=== PATIENT | male | born 1960 | race Caucasian/White ===

== ENCOUNTER → 2019-08-16 12:35 | Outpatient (CLI) | payer OTHER ==
--- NOTE | 2019-08-18 08:54 | EC ---
PATIENT:EUGENIE CURRY DATE OF SERVICE: 08/16/19 SEX: M MEDICAL RECORD: [id number] DATE OF : 60 LOCATION:D. AGE OF PATIENT: 58 ADMISSION DATE: 08/16/19 REFERRING PHYSICIAN: INTERPRETING PHYSICIAN: GERALD BURRIS MD ECHOCARDIOGRAM REPORT ECHO CHARGES 4 ECHO COMPLETE Date: 08/16/19 CLINICAL DIAGNOSIS: HEART MURMUR ECHOCARDIOGRAPHIC MEASUREMENTS (adult normal given) AC root (d.<3.7cm) 3.6 cm LV Septum d (<1.2 cm> 1.3 cm Valve Excursion 1.6 cm LV Septum (systole) 1.4 cm Left Atria (s.<4.0cm> 3.4 cm LVPW d(<1.2cm) 1.3 cm RV (d.<2.3cm) 3.8 cm LVPW (sytole) 1.7 cm LV diastole(<5.6CM) 4.9 cm MV E-F(>70mm/sec) cm LV systole 3.1 cm LVOT Diameter 1.9 cm MV exc.(>10mm) 1.9 cm Est.ejection fraction (50-75%) % DOPPLER: LVIT cm/sec A 68.0 cm/sec E 36.0 cm/sec LA cm/sec RVSP 22 mmHg LVOT 106 cm/sec AOP1/2T m/s Asc. Ao 124 cm/sec RVOT 68 cm/sec RA cm/sec PA 89 cm/sec AV Gradient Peak 6.14 mmHg AV Mean 2.92 mmHg AV Area 2.0 cm MV Gradient Peak 3.58 mmHg MV Mean 1.31 mmHg MV Area cm COMMENTS: Road Contractor: 2 BLAYNE DEL REAL Encephalographer: 3 Dr. Gonzales TAPE# PACS Pericardial Effusion N DATE OF SERVICE: Adequate 2-D echo, Color-Flow and Spectral Doppler, and M-mode Mild LVH. LV internal dimension is normal. Wall motion is normal. EF is greater than or equal to 55%. Aortic valve is tricuspid. No evidence of stenosis by Doppler interrogation. Left atrium is normal at 3.4 cm. Mitral valve shows no prolapse. Trace MR. Right-sided chambers are grossly normal. Trace TR. ECHOCARDIOGRAM REPORT [id number] EUGENIE CURRY TRANSINT:[id number] Voice Confirmation ID: [id number] DOCUMENT ID: [id number] GERALD BURRIS MD at 0854 CC: [id number] DICTATION DATE: 08/17/191314 HYDRAULIC LIFT OPERATOR: 08/17/191924 DEP CLI 08/16/19 [facility] [address] [place] [address]
--- NOTE | 2019-08-26 11:25 | ST ---
PATIENT:EUGENIE CURRY MEDICAL RECORD: [id number] SEX: M LOCATION:[facility] ORDER #: ADMISSION DATE: 08/16/19 AGE OF PATIENT: 58 REFERRING PHYSICIAN: INTERPRETING PHYSICIAN: GERALD BURRIS MD DATE OF SERVICE: 08/16/2019 PROCEDURE: Treadmill stress test. TECHNIQUE: Bassline ECG is normal. Exercise for 10 minutes on Edis protocol. Maximum heart rate is 146 beats per minute. No ECG changes for ischemia. No symptoms of ischemia. Normal blood pressure response to exercise. No arrhythmias noted. Good exercise tolerance for age. TRANSINT:[id number] Voice Confirmation ID: [id number] DOCUMENT ID: [id number] GERALD BURRIS MD at 1125 CC: [id number] DICTATION DATE: 08/19/19 1223 CAREER INFORMATION SPECIALIST: 08/19/19 1407 DEP CLI 08/16/19 [id number] [place] [address]
== END | disposition home or self-care (01) ==
LOC: D.US 12:35 → D.HCCECHO 14:00
PROVIDERS: ATTEND Internal Medicine Interventional Cardiology
DX: R09.89 Other specified symptoms and signs involving the circulatory and respiratory systems (principal); R01.1 Cardiac murmur, unspecified; I20.9 Angina pectoris, unspecified

== ENCOUNTER 2019-10-30 03:42 | Observation (INO) | payer OTHER ==
[~2019-10-30] VITALS: Ht 180.3 cm; Wt 76.4 kg
--- NOTE | ~2019-10-30 | HEMODYNAMI ---
PATIENT:EUGENIE CURRY MEDICAL RECORD: [id number] : 60 LOCATION:[facility] D.2116 ADMISSION DATE: 10/30/19 Generatedon:10/30/201910:36 Patient name: EUGENIE CURRY Patient #: [id number] SSN: : 1960 Date of study: 10/30/2019 Page: Of Hemodynamic Procedure Report Patient Data Patient Demographics Procedure consent was obtained First Name: EUGENIE Gender: Male Last Name: ANTOINETTE : 1960 Patient #: [id number] Age: 59 year(s) Race: Unknown Additional ID: [id number] Contact details Address: [address] [place] [address] State: [place] City: [place] Zip code: [address] Past Medical History Allergies: No known allergies Admission Admission Data Admission Date: 10/30/2019 Admission Time: 4:22 Arrival Date: 10/30/2019 Arrival Time: 0:00 Room #: D.2116 Height (in.): 70.87 BSA: 1.95 (m2) Height (cm.): 180 BMI: 23.46 (kg/m2) Weight (lbs.): 167.55 Weight (kg.): 76 Lab Results Lab Result Date: 10/30/2019 Lab Result Time: 0:00 Biochemistry Name Units Result Min Max BUN mg/dl 16 --(---*)-- 7 18 Creatinine mg/dl 1.3 --(---*)-- 0.6 1.3 eGFR ml/min 60 *-(----)-- 90 120 NONAFRICAN CBC Name Units Result Min Max Hematocrit % 47.6 --(-*--)-- 42 54 Hemoglobin g/dl 16.5 --(--*-)-- 13.5 17.5 Procedure Procedure Types Cath Procedure Diagnostic Procedure [facility] w/Coronaries Sedation Charges Moderate Sedation up to 30 minutes PCI Procedure Coronary Stent Coronary Stent Initial PTCA PTCA Additional Hemochron ACT Test Peripheral Cath Diagnostic Procedure Lead Generation Marketing Manager Peripheral Procedures Four Vessel Arteriogram Procedure Description Procedure Date Procedure Date: 10/30/2019 Procedure Start Time: 9:44 Procedure End Time: 10:17 Procedure Staff Name Function Rodolfo Torres MD Performing Physician Eula Briceno RT Monitor Ramila Rubi RT Scrub Myriam Gaytan RT Monitor Geri Blake RN Nurse Indication Angina Procedure Data Cath Procedure Fluoroscopy Diagnostic fluoroscopy Total fluoroscopy Time: time: 10.3 min 10.3 min Diagnostic fluoroscopy Total fluoroscopy dose: 892 dose: 892 mGy mGy Contrast Material Contrast Material Type Amount (ml) Isovue 300 155 Entry Location Entry Primary Successful Side Size Upsize Upsize Entry Closure Succes sful Closure Location (Fr) 1 (Fr) 2 (Fr) Remarks Device Remarks Femoral Right 5 Fr 6 Fr Exoseal artery Short Estimated blood loss: 10 ml Diagnostic catheters Device Type Used For End Catheter Placement MULTIPACK JL 4.0 5Fr Procedure catheter MULTIPACK 3DRC 5Fr Procedure catheter MULTIPACK Pigtail 5 Fr Procedure catheter Procedure Complications No complications Procedure Medications Medication Administration Route Dosage 0.9% NaCl I.V. 100 ml/hr Oxygen etCO2 Nasal cannula 2 l/min Lidocaine 2% added to field 20 Heparin Flush Bag added to field 2 bags (1000units/500ml NS) Versed I.V. 2 mg Fentanyl I.V. 50 mcg Fentanyl I.V. 50 mcg Heparin Bolus I.V. 5000 units Integrilin (Bolus I.V. 6.8 ml 2mg/ml) Integrilin (Bolus wasted 3.2 ml 2mg/ml) Versed I.V. 2 mg Hemodynamics Rest BSA: 1.95 (m2) HGB: 16.5 (g/dl) O2 Consumption: Estimated: 225.12 (ml/min) O2 Co nsumption indexed: Estimated:115.45 (ml/min/m) Heart Rate: 64 (bpm) Pressure Samples Time Site Value (mmHg) Purpose Heart Use Rate(bpm) 9:52 LV 121/11,14 Snapshot 86 Gradients Valve Time Site Site Mean SEP/DFP Peak To Heart Use 1 2 (mmHg) (sec/min) Peak Rate (mmHg) (bpm) Aortic 9:53 LV AO 80 Snapshots Pre Cath Intra NCS Post Cath Vital Signs Time Heart Resp SPO2 etCO2 NIBP (mmHg) Rhythm Pain Sedation Rate (ipm) (%) (mmHg) Status Level (bpm) 9:31:46 61 13 100 40 152/93(135) NSR 0 (11) 10(A) , No pain 9:35:56 58 16 100 40.1 163/96(121) NSR 0 (11) 10(A) , No pain 9:40:08 80 15 99 44.6 147/92(114) NSR 0 (11) 10(A) , No pain 9:44:18 75 13 97 44.6 131/95(117) NSR 0 (11) 10(A) , No pain 9:48:23 76 11 97 49.1 130/87(115) NSR 0 (11) 10(A) , No pain 9:52:35 77 12 97 49.1 126/67(102) NSR 0 (11) 10(A) , No pain 9:56:41 85 14 96 48.3 125/86(101) NSR 0 (11) 9(A) , No pain 10:00:47 84 14 96 40 129/82(107) NSR 0 (11) 9(A) , No pain 10:04:51 81 15 96 38.5 132/92(117) NSR 0 (11) 9(A) , No pain 10:08:55 76 14 97 38.5 138/94(118) NSR 0 (11) 9(A) , No pain 10:13:00 77 14 97 40.8 138/97(115) NSR 0 (11) 9(A) , No pain 10:17:06 71 15 97 39.3 137/98(113) NSR 0 (11) 9(A) , No pain Medications Time Medication Route Dose Verified Delivered Reason Notes Effectiveness by by 9:37:10 0.9% NaCl I.V. 100 Rodolfo Geri used for ml/hr Melissa Hayden procedure RN 9:37:17 Oxygen etCO2 2 Rodolfo Geri used for Nasal l/min Melissa Hayden procedure cannula RN 9:37:22 Lidocaine 2% added 20ml Rodolfo Reynolds for local to vial [facility] anesthetic field MD MILLER 9:37:25 Heparin Flush added 2 Rodolfo Reynolds [facility] ([facility]/500ml field MD MILLER NS) 9:42:37 Versed I.V. 2 mg Rodolfo Geri for sedation [facility] Blake MD RN 9:42:41 Fentanyl I.V. 50 Rodolfo Geri for sedation mcg [facility] Blake MD RN 9:49:18 Heparin Bolus I.V. 5000 Rodolfo Geri for verifi ed units [facility] Blake anticoagulation with Dr. MD MARIA E Gonzales 9:49:18 Fentanyl I.V. 50 Rodolfo Geri for sedation mcg [facility] Blake MD RN 9:49:31 Integrilin I.V. 6.8 Rodolfo Geri for (Bolus 2mg/ml) ml [facility] antiplatelet RN therapy 9:49:42 Integrilin wasted 3.2 Rodolfo Geri for (Bolus 2mg/ml) ml [facility] antiplatelet RN therapy 9:53:20 Versed I.V. 2 mg Rodolfo Geri for sedation [facility] Edward Blake MD fund director Log Time Note 9:11:47 Informed consent obtained and on chart 9:12:18 Time tracking: Call back (After hours or weekends) 9:12:18 Procedure Status Urgent Heart Cath (IP). 9:12:28 Plan of Care:Hemodynamics will remain stable., Cardiac rhythm will remain stable., Comfort level will be maintained., Respiratory function will remain adequate., Patient/ family verbilizes understanding of procedure., Procedure tolerated without complication., Recovers from procedure without complications.. 9:12:31 Eula PIEDRA(R) sent for patient. Start room use. 9:12:35 H&P Date Dictated: 10/30/2019 ER History on chart.. 9:16:28 Patient allergic to No known allergies 9:17:08 Lab Result : Hemoglobin 16.5 g/dl 9:17:08 Lab Result : Hematocrit 47.6 % 9:17:08 Lab Result : eGFR NONAFRICAN 60 ml/min 9:17:08 Lab Result : BUN 16 mg/dl 9:17:08 Lab Result : Creatinine 1.3 mg/dl 9:17:48 Patient Weight : 167.55 lbs 9:17:51 Patient Height : 70.87 inches 9:17:55 Arrival Date: 10/30/2019 12:00:00 AM 9:18:16 Indication : Angina 9:18:24 Procedure type changed to Cath procedure, Diagnostic procedure, LHC, LHC w/Coronaries, Sedation Charges, Moderate Sedation up to 30 minutes, PCI procedure, Coronary Stent, Coronary Stent Initial, PTCA, PTCA Additional, Hemochron ACT Test, Peripheral Cath Diagnostic Procedure, Lead Generation Marketing Manager Peripheral Procedures, Four Vessel Arteriogram 9:22:37 Stress Test: no; N/A ? 9:23:55 Risk of Mortality: 2.2 9:23:58 Risk of blood transfusion: 5.2 9:24:01 Risk of CHUCK: 17.4 9:27:31 Patient received from Med II to CCL 1 Alert and oriented. Tansferred to table in Supine position. 9:27:32 Correct patient and procedure confirmed by team. 9:27:32 Warm blankets applied, and grecia hugger turned on for patient comfort. 9:27:33 ECG and BP/O2 sat monitors applied to patient. 9:29:17 Pre-op teaching completed and patient verbalized understanding. 9:29:17 Pre-procedure instructions explained to patient. 9:29:22 Family in patients room. 9:29:23 Patient NPO since Midnight. 9:29:30 Is the patient allergic to Iodine/contrast media? No. 9:29:32 Is patient on blood thinner?Yes 9:29:43 pre loaded on plavix 9:29:46 Patient diabetic? No. 9:29:48 Previous problem with sedation/anesthesia? No ? 9:29:51 Snore? Yes 9:29:52 Sleep apnea? No 9:29:53 Deviated septum? No 9:29:54 Opens mouth fully? Yes 9:29:57 Sticks out tongue? Yes 9:30:00 Airway obstruction? No ? 9:30:01 Dentures? No ? 9:30:03 Pre procedure: right dorsailis pedis pulse 1+ Palpable, but thready & weak; easily obliterated 9:30:05 Patient pain scale 7/10 ?. 9:30:11 IV patent on arrival in left antecubital with 0.9% NaCl at KVO. 9:30:13 Lab results completed and on chart. 9:30:16 Right groin area was prepped with chlora-prep and draped in sterile fashion 9:30:17 Sharps counted by scrub and verified by R.N. 9:30:17 Alarms reviewed by R. N. 9:30:20 Use device set Femoral Dx 9:30:21 Bag Decanter (2002S) opened to sterile field. 9:30:21 ACIST Syringe (31229) opened to sterile field. 9:30:22 ACIST Hand Control (09032) opened to sterile field. 9:30:23 Tegaderm 4 x 4 (1626W) opened to sterile field. 9:30:23 ACIST Manifold (21324) opened to sterile field. 9:30:25 Medline Cath Pack ([id number]) opened to sterile field. 9:30:26 SHEATH 5FR Greenfield (NGM842) opened to sterile field. 9:30:26 DIAGNOSTIC Multipack 5Fr catheter set ([id number]) opened to sterile field. 9:30:27 EMERALD Guide Wire (929-803) opened to sterile field. 9:30:36 Vital chart was started 9:30:43 Baseline sample Acquired. 9:32:50 Rhythm: sinus rhythm 9:32:52 Full Disclosure recording started 9:37:10 0.9% NaCl 100 ml/hr I.V. was administered by Geri Blake RN; used for procedure; Verbal order read back and verified. 9:37:17 Oxygen 2 l/min etCO2 Nasal cannula was administered by Geri Blake RN; used for procedure; Verbal order read back and verified. 9:37:22 Lidocaine 2% 20ml vial added to field was administered by Rodolfo Torres MD; for local anesthetic; Verbal order read back and verified. 9:37:25 Heparin Flush Bag (1000units/500ml NS) 2 bags added to field was administered by Rodolfo Torres MD; used for procedure; Verbal order read back and verified. 9:39:44 Final Timeout: patient, procedure, and site verified with staff and physician. All members of the team are in agreement. 9:39:44 --------ALL STOP TIME OUT------ 9:39:45 Right groin site verified by team. 9:39:48 Fire Safety Assessment: A--An alcohol-based skin anteseptic being used preoperatively., C--Open oxygen or nitrous oxide is being used., D--An ESU, laser, or fiber-optic light is being used. 9:39:50 Physical assessment completed. ASA score P 2 - A patient with mild systemic disease as per Rodolfo Torres MD. 9:39:53 2) 60-89 Mildly reduced kidney function, and other findings (as for stage 1) point to kidney disease. 9:39:56 Maximum allowable contrast dose (3.7 X eGFR X 0.75)167 ml. 9:40:00 Sedation plan: IV Moderate Sedation Medication:Versed, Fentanyl 9:42:37 Versed 2 mg I.V. was administered by Geri Blake RN; for sedation; Verbal order read back and verified. 9:42:41 Fentanyl 50 mcg I.V. was administered by Geri Blake RN; for sedation; Verbal order read back and verified. 9:44:04 Procedure started. 9:44:08 Local anesthetic to right femoral artery with Lidocaine 2% by Rodolfo Torres MD.INITIAL ACCESS ONLY 9:44:15 A 5 Fr sheath was inserted into the Right Femoral artery 9:45:06 A MULTIPACK JL 4.0 5Fr catheter was advanced over the wire and used for Procedure. 9:46:00 LCA angiography performed. 9:46:32 Catheter removed. 9:46:53 A MULTIPACK 3DRC 5Fr catheter was advanced over the wire and used for Procedure. 9:47:32 RCA angiography performed. 9:49:18 Heparin Bolus 5000 units I.V. was administered by Geri Blake RN; for anticoagulation; verified with Dr. Gonzales Verbal order read back and verified. 9:49:18 Fentanyl 50 mcg I.V. was administered by Geri Blake RN; for sedation; Verbal order read back and verified. 9:49:31 Integrilin (Bolus 2mg/ml) 6.8 ml I.V. was administered by Geri Blake RN; for antiplatelet therapy; Verbal order read back and verified. 9:49:42 Integrilin (Bolus 2mg/ml) 3.2 ml wasted was administered by Geri Blake RN; for antiplatelet therapy; Verbal order read back and verified. 9:50:18 Right carotid angiography performed. 9:50:46 Left carotid angiography performed. 9:51:10 Catheter removed. 9:51:30 A MULTIPACK Pigtail 5 Fr catheter was advanced over the wire and used for Procedure. 9:52:04 LV gram done using HARDWICK 9:52:06 Injector settings: Ml/sec: 10, Volume: 20, 9:52:51 LV hemodynamics recorded. 9:52:55 Proceeding to intervention. 9:52:55 EF : 55 % 9:52:58 SHEATH 6FR Greenfield (HOQ737) opened to sterile field. 9:52:59 GUIDE 6FR XBLAD 3.5 catheter ([id number]) opened to sterile field. 9:52:59 INFLATOR Merit BasixCompak (NB6484) opened to sterile field. 9:52:59 WHISPER 300cm guide wire ([id number]) opened to sterile field. 9:53:11 Sheath upsized to a 6 Fr Short. 9:53:20 Versed 2 mg I.V. was administered by Geri Blake RN; for sedation; Verbal order read back and verified. 9:54:09 Pre PCI Site: [place] LAD has 100% stenosis. 9:54:39 6 Fr XBLAD 4 guide catheter was inserted over the wire 9:56:21 WHISPER 300 wire advanced. 9:57:25 Wire advanced across lesion. 9:58:26 Inflate balloon Inflation number: 1 A EMERGE OTW 3.0 x 15 balloon ([id number]) was prepped and advanced across the Prox LAD , then inflated to 14 ASYA for 0:00 (min:sec) . 10:00:11 Balloon removed over the wire. 10:03:35 Place stent Inflation Number: 2 A THOMPSON RX 3.5 x 18 stent ([id number]) was prepped and advanced across the Prox LAD . The stent was deployed at 12 ASYA for 0:00 (min:sec) . 10:04:00 Stent catheter was removed intact over wire. 10:04:14 Pre PCI Site: [place] Diag1 has 99% stenosis. 10:09:20 WHISPER 300cm guide wire ([id number]) opened to sterile field. 10:09:44 NEW WIRE NEEDED. 10:10:22 Wire advanced across DIAG lesion. 10:10:56 Inflate balloon Inflation number: 1 A EMERGE OTW 2.5 x 15 balloon ([id number]) was prepped and advanced across the 1st Diag , then inflated to 6 ASYA for 0:00 (min:sec) . 10:11:56 Inflation number: 2 The EMERGE OTW 2.5 x 15 balloon ([id number]) was reinflated across the 1st Diag , to 8 ASYA for 0:00 (min:sec) . 10:12:24 Wire removed. 10:12:24 Balloon removed over the wire. 10:12:26 Guide catheter removed. 10:12:31 EXOSEAL 6Fr (EX600) opened to sterile field. 10:12:56 Sheath removed intact; hemostasis achieved with Exoseal to the Right Femoral artery. 10:13:12 Procedure ended.(Physican Out) 10:13:44 Fluoroscopy time 10.30 minutes. 10:13:52 Fluoroscopy dose: 892 mGy 10:13:52 Flurop Dose total: 892 10:13:59 Dose Area Product 70058 mGy/cm. 10:14:11 Contrast amount:Isovue 300 155ml. 10:14:14 Sharps counted by scrub and verified by R.N. 10:14:14 Maximum allowable dose exceeded? No. 10:14:17 Post-op/insertion site Right Femoral artery dressed using a 4 x 4 and Tegaderm. 10:14:19 Post-procedure physical assessment completed. ASA score P 2 - A patient with mild systemic disease as per Rodolfo Torres MD. 10:15:08 Post procedure rhythm: sinus rhythm 10:15:12 Estimated blood loss: 10 ml 10:15:13 Post procedure instruction explained to patient.Patient verbalizes understanding. 10:15:14 Patient needs reinforcement of post procedure teaching. 10:16:49 Procedure and supply charges have been captured, reviewed, submitted and are correct. 10:16:56 Procedure Complication : No complications 10:17:12 ACT drawn and resulted at 235 seconds. (normal therapeutic range 180-240 seconds). 10:17:27 Vital chart was stopped 10:17:30 [facility] Findings: MVD- PCI performed (see procedure note) 10:17:32 See physician's report for complete and final results. 10:17:32 Operative report dictated upon procedure completion. 10:17:35 Report given to PCU. 10:17:37 Patient transfered to PCU with Bed. 10:17:39 Full Disclosure recording stopped 10:17:39 Procedure ended. 10:18:17 ACC-PCI Only Patient was given prescriptions, or instructed by Rodolfo Torres MD to start/continue the following medications upon discharge: Plavix 10:18:18 End room use (Document Last) 10:21:35 End room use (Document Last) 10:22:09 End room use (Document Last) Intervention Summary Intervention Notes Time ActionType Lesion and Equipment Used Action# Pressure Duration Attributes 9:58:26 Inflate Prox LAD EMERGE OTW 3.0 1 14 00:00 balloon x 15 balloon ([id number]) 10:03:35 Place stent Prox LAD THOMPSON RX 3.5 x 2 12 00:00 18 stent ([id number]) 10:10:56 Inflate 1st Diag EMERGE OTW 2.5 1 6 00:00 balloon x 15 balloon ([id number]) 10:11:56 Reinflate 1st Diag EMERGE OTW 2.5 2 8 00:00 balloon x 15 balloon ([id number]) Device Usage Item Name Manufacture Quantity Catalog Number Hospital Part Current Minimal Lot# / Charge Number Stock Stock Serial# Code ACIST Syringe Acist 1 55285 830808 122225 646426 20 (42424) Medical Systems Inc Bag Decanter Microtek 1 2001S 569551 91585 444943 5 (2001S) Medical Inc. ACIST Hand Acist 1 36816 900946 432409 623399 5 Control Medical (02765) Systems Inc ACIST Manifold Acist 1 17592 261413 171577 826355 5 (01911) Medical Systems Inc Tegaderm 4 x 4 3M 1 1626W 427460 891008 353039 5 (1626W) Medline Cath Medline 1 [id number] 080400 23492 062220 5 Pack ([id number]) DIAGNOSTIC Cardinal 1 ZP6889 721602 06980 914005 30 Multipack 5Fr Health catheter set (WL8658) SHEATH 5FR Terumo 1 OUB084 582679 231157 294804 5 Greenfield (BLK484) EMERALD Guide Cardinal 1 502-455 335508 194170 909710 5 Wire (502-455) Health MULTIPACK JL Cardinal 1 871848 5 4.0 5Fr Health catheter MULTIPACK 3DRC Cardinal 1 894032 5 5Fr catheter Health MULTIPACK Cardinal 1 025503 5 Pigtail 5 Fr Health catheter SHEATH 6FR Terumo 1 KTC431 910235 436872 379553 40 Greenfield (LZY503) WHISPER 300cm Hernandez 2 [id number] 992610 181608 713489 5 guide wire Vascular ([id number]) INFLATOR Merit Merit 1 FD2814 800134 567436 671880 15 BasixCommek Medical (UY8205) GUIDE 6FR Cardinal 1 [id number] 204089 174878 876758 10 XBLAD 3.5 Health catheter (78120764) EMERGE OTW 3.0 [place] 1 [id number] 113627 211562 498920 5 [id number] x 15 balloon Scientific ([id number]) THOMPSON RX 3.5 x Medtronic 1 [id number] 090518 4955192 496526 5 [id number] 18 stent ([id number]) EMERGE OTW 2.5 [place] 1 [id number] 414091 306967 497536 5 13378256 x 15 balloon Scientific ([id number]) EXOSEAL 6Fr Cardinal 1 EX600 830833 252101 978633 10 (EX600) Health Signature Audit [place] Stage Time Signature Unsigned Intra-Procedure 10/30/2019 Myriam Gaytan 10:21:35 AM RT(R) Intra-Procedure 10/30/2019 Geri Blake 10:22:09 AM RN Intra-Procedure 10/30/2019 Rodolfo Schuster RN 10:22:49 AM Edward MILLER 10/30/2019 10:35:00 AM Intra-Procedure 10/30/2019 Geri Blake 10:35:37 AM RN Intra-Procedure 10/30/2019 Rodolfo Barker 10:35:57 AM Edward MILLER Signatures Performing Physician : Signature : Rodolfo Torres MD Date : Time : Monitor : Eula Briceno Signature : RT Date : Time : Monitor : Myriam Gaytan Signature : RT Date : Time : Nurse : Geri Hayden RN Signature : Date : Time : [address] [place] [address]
[2019-10-30 03:55] LABS: BASOPHILS 0.6 % (0-2); EOSINOPHILS 3.9 % (0-7); HEMATOCRIT 47.6 % (42.0-54.0); HEMOGLOBIN 16.5 g/dL (13.5-17.5); IMMATURE GRANULOCYTES 0.1 % (0-5); LYMPHOCYTES 42.2 % (15-50); MCH 32.1 pg (26.0-34.0); MCHC 34.7 g/dL (31.0-37.0); MCV 92.6 fL (80.0-100.0); MONOCYTES 12.5 % (2-11); NEUTROPHILS 40.7 % (40-80); RBC 5.14 10x6/uL (4.20-6.10); RDW 12.9 % (11.5-14.5); WBC 7.9 10x3/uL (4.8-10.8)
[2019-10-30 03:58] LABS: PLATELET COUNT 247 10x3/uL (130-400)
[2019-10-30 04:03] LABS: CALC OSMOLALITY 290 mosm/kg (275-300); CALCIUM 8.9 mg/dL (8.5-10.1); CARBON DIOXIDE 27.8 mmol/L (21.0-32.0); CHLORIDE - SERUM 105 mmol/L (98-107); CREATININE - SERUM 1.3 mg/dL (0.6-1.3); GLUCOSE 145 mg/dL (74-106); POTASSIUM - SERUM 3.1 mmol/L (3.5-5.1); SODIUM 144 mmol/L (136-145); UREA NITROGEN 16 mg/dL (7-18); eGFR NON AFRICAN AMERICAN 60 mL/min (90-120)
[2019-10-30 04:04] LABS: APTT 22.4 SECONDS (22.8-39.4); INR 0.98 (0.85-1.17); PROTIME 12.9 SECONDS (11.6-15.0)
[2019-10-30 04:10] VITALS: BP 148/91
[2019-10-30 04:27] LABS: ALBUMIN 3.4 g/dL (3.4-5.0); ALKALINE PHOSPHATASE 87 U/L (30-120); ALT (SGPT) 23 U/L (10-68); BILIRUBIN - TOTAL 0.39 mg/dL (0.2-1.3); CREATINE KINASE 83 UL (21-232); PROTEIN - SERUM 7.7 g/dL (6.4-8.2); TROPONIN-I < 0.017 ng/mL (0.000-0.060)
--- NOTE | 2019-10-30 04:30 | NUR ---
PATIENT ALERT OX3. MORPHINE/ ZOFRAN GIVEN FOR CHEST PAIN 03/10. PATIENT RESTING WITH EYES CLOSED. RESP EVEN AND UNLABORED. AT BEDSIDE
[2019-10-30 04:32] VITALS: BP 129/89
[2019-10-30 06:31] VITALS: BP 123/80; Ht 180.3 cm; Wt 76.4 kg
[2019-10-30] MEDS ORDERED: LISINOPRIL-HCT1 EAC4 PO (06:31)
[2019-10-30 08:21] VITALS: BP 132/83
--- NOTE | 2019-10-30 09:40 | NUR ---
CONSENTS SIGNED. PRE-OPS GIVEN. TO CHILD WELFARE SPECIALIST BY BED.
--- NOTE | 2019-10-30 10:48 | NUR ---
BACK FROM COIL INSPECTOR. VS WNL. RIGHT GROIN STABLE WITHOUT BLEEDING OR HEMATOMA NOTED. WILL MONITOR.
[2019-10-30 11:22] VITALS: BP 118/85
[2019-10-30] MEDS ORDERED: PLAVIX75 MG PO (12:25)
[2019-10-30] MEDS ORDERED: LIPITOR10 MG PO (12:26)
[2019-10-30] MEDS ORDERED: BISOPROLOL FUMAR5 MG PO (12:27)
[2019-10-30] MEDS ORDERED: BAYER CHEWABLE81 MG PO (12:32)
--- NOTE | 2019-10-30 14:42 | NUR ---
BED REST UP. GROIN STABLE. IV AND TELEMETRY DCD.
--- NOTE | 2019-10-30 15:09 | NUR ---
DC PLANS GIVEN. UNDERSTANDING VOICED. ESCORTED TO CAR BY W/C.
--- NOTE | 2019-11-01 09:08 | MORECARE ---
CASE MANAGEMENT DISCHARGE SUMMARY PATIENT: EUGENIE CURRY UNIT: [id number] ADM DATE: 10/30/19 AGE: 59 : 60 SEX: M ROOM/BED: D.2116 AUTHOR: CHARLENE JONES PHYSICIAN: REFERRING PHYSICIAN: GERALD BURRIS MD DATE OF SERVICE: 11/01/19 Discharge Plan Patient Name: EUGENIE CURRY [facility] [facility] 1960 Planned Disposition: Home Anticipated Discharge Date: 10/30/19 Discharge Date: 10/30/2019 Expected LOS: 1 Initial Reviewer: [email or web address] Initial Review Date: 11/01/2019 Generated: 11/01/19 10:07 am Patient Name: EUGENIE CURRY Page 38871 at 0908 All edits/amendments must be made on the electronic document DICTATION DATE: 11/01/19906 TRIAGE NURSE: MORRIS 11/01/19906 RPT#: [id number] DC DATE:10/30/19 STATUS: DIS IN [facility] [address] [place] [address] END OF REPORT
--- NOTE | 2019-11-03 08:18 | OP ---
PATIENT NAME: EUGENIE CURRY MEDICAL RECORD: [id number] :60 LOCATION:D.M2 D.2116 ADMISSION DATE:10/30/19 SURGEON: GERALD BURRIS MD DATE OF OPERATION: 10/30/2019 Cath, HAIRSPRING I INSPECTOR stent report plus 4-vessel arteriography. PROCEDURE: Left heart catheterization, selective coronary angiography, right femoral artery approach. CATHETERS: A 5-Citizen Of [place] sheath, 5/4 left and right Wolfgang, 5/4 pig. The procedure was well tolerated. The patient returned to joseph, sheath removed, ExoSeal device placed. FINDINGS: Left ventriculography in 30-degree HARD[place] view shows a very mild anterior apical hypokinesis. Overall, LV function preserved at 50% or better. CORONARY ANATOMY: LEFT MAIN: Left main is free of disease. LAD: Fills for a short period of time and is totally occluded proximally. CIRCUMFLEX: Luminal irregularities, otherwise free of disease. RIGHT CORONARY ARTERY: Dominant artery, gives rise to PDA, free of disease. IMPRESSION: Totally occluded left anterior descending. PLAN: Intervention momentarily. DESCRIPTION OF PROCEDURE: A 5-Citizen [place] sheath was exchanged for a 6-Citizen [place] sheath. XB LAD 3.5 catheter provided excellent guide catheter support, followed by a 300 cm Whisper wire was placed across the occluded LAD. Pre-deployment balloon was a 3.5 x 15 mm Stanley balloon up to 8 atmospheres, shows nondenominational of CARMEL flow nicely to a large LAD and diagonal with some type-A dissection of the proximal LAD. Stent deployed was a 3.[address] drug-eluting stent up to 14 atmospheres. This showed excellent resolution of 100% stenosis, no significant residual. Nice step down distally. There was snowplowing into the first diagonal branch. We were able cross this wire with a Whisper wire and proceeded to PTCA the diagonal with a 2.5 x 12 mm Stanley. IMPRESSION: Successful percutaneous transluminal angioplasty stenting of the left anterior descending to 100% to no significant residual, successful HAIRSPRING I INSPECTOR ostial diagonal from 90+ percent to less then 50% residual. Four-vessel arteriography was performed secondary to syncope and near-syncope with amaurosis type visual changes. Right common carotid was small vessel, free of disease. Right external carotid, luminal irregularities, but no flow obstructive disease. Right internal carotid luminal irregularities, but no flow obstructive disease. Left common carotid was selectively engaged. This is a smooth-walled vessel, free of disease. Left internal carotid after the bifurcation of the internal and external just above the bulb shows about 20% stenosis. Left external carotid is free of disease. Impression; early atherosclerotic disease of the carotid artery disease. He is going to be followed longitudinally with Doppler studies. OPERATIVE REPORT [id number] EUGENIE CURRY TRANSINT:[id number] Voice Confirmation ID: [id number] DOCUMENT ID: [id number] GERALD BURRIS MD at 0818 CC: [id number] DICTATION DATE: 10/30/19 1028 [employer] PROGRAMS DIRECTOR: 10/30/19 1457 DIS IN 10/30/[address] [facility] [address] [place] [address]
--- NOTE | 2019-11-03 08:18 | DS ---
PATIENT:EUGENIE CURRY :60 MEDICAL RECORD: [id number] DISCHARGE SUMMARY ADMISSION DATE: 10/30/19 DISCHARGE DATE: 10/30/19 PROBLEM LIST: 1. Acute coronary syndrome. 2. Hypertension. 3. Known history of coronary artery disease. BRIEF HISTORY AND HOSPITAL COURSE: A 59-year-old gentleman admitted with acute coronary syndrome, found to have totally occluded LAD, underwent a PTCA sent of the LAD as well as intervention to the diagonal. LV function was found to be normal. Discharged home on beta blockade, aspirin, and Plavix as well as a statin therapy. ACTIVITY: As tolerated. DIET: AHA diet. TRANSINT:[id number] Voice Confirmation ID: [id number] DOCUMENT ID: [id number] GERALD BURRIS MD at 0818 CC: [id number] DICTATION DATE: 10/30/19 1033 CASINO WORKER: 10/31/19 0809 DIS IN 10/30/19 [id number] [place] [address]
--- NOTE | 2019-11-03 08:18 | HP ---
PATIENT: EUGENIE CURRY MEDICAL RECORD: [id number] ACCOUNT: [id number] LOCATION:[address] : 60 ADMISSION DATE: 10/30/19 PCP: JOSE L IVERSON HISTORY AND PHYSICAL EXAMINATION HISTORY OF PRESENT ILLNESS: A 59-year-old gentleman known to me with a history of hypertension, hyperlipidemia, strong family history of coronary artery disease, admitted with chest pain, underwent thorough noninvasive study with an echo and treadmill stress testing recently at our office, says he had pain since then including rest symptomology, concern for false negative at this point. Additionally, he has been having TIA symptomology with amaurosis visual type changes, had avinash syncope last night. Chest pain continued to be intermittent since arrival. We are asked to see him concerning his cardiovascular status. PAST MEDICAL HISTORY: Includes; 1. History of hypertension. 2. Hyperlipidemia. ALLERGIES: None known. MEDICATIONS: Include lisinopril 20 mg every day, hydrochlorothiazide 25 mg p.o. every day. SOCIAL HISTORY: . Nonsmoker and nondrinker. Easily takes care of all ADLs, still works multimedia artist. REVIEW OF SYSTEMS: The patient reports easy bruising but reports no swollen glands. The patient reports no fever, no night sweats, no significant weight gain, no significant weight loss. No significant exercise tolerance. The patient reports no dry eyes, no irritation, no vision change. Patient reports no difficulty hearing and no ear pain. Patient reports no frequent nose bleeds or nose and sinus problems. Patient reports on arm pain on exertion. No shortness of breath while lying down. No history of heart murmur. Patient reports no cough, no wheezing or coughing up blood. Patient reports no abdominal pain, no vomiting. Normal appetite. No diarrhea and not vomiting blood. No nausea and no constipation. Patient reports no incontinence. No difficulty urinating. No hematuria. No increased frequency. Patient reports no muscle aches. No weakness, no arthralgias, no back pain. No swelling of the extremities. Patient reports no abnormal mole, no jaundice, no rashes. Reports no loss of consciousness. No weakness and no numbness. No seizures, dizziness, or headaches. The patient reports no depression, no sleep disturbance, feeling safe in a relationship and no alcohol abuse. Patient reports on fatigue. Reports no runny nose or sinus pressure. No itching, no hives, and no frequent sneezing. PHYSICAL EXAMINATION: GENERAL: Pleasant gentleman in no acute distress. VITAL SIGNS: Blood pressure 132/83, pulse 66 and regular. HEENT: Normocephalic, atraumatic. NECK: Questionable right carotid bruit. HEART: Regular, II/ systolic ejection murmur. LUNGS: Good air excursion. ABDOMEN: Soft, nontender. EXTREMITIES: Pulses 2+ with no edema. HISTORY AND PHYSICAL [id number] EUGENIE CURRY DIAGNOSTIC DATA: EKG shows ST-T changes anterolaterally. IMPRESSION AND PLAN: Acute coronary syndrome. Near syncope with more recently avinash syncope and amaurosis type symptomatology. We will plan for diagnostic angiography as well as 4-vessel arteriography. Intervention based on the above. TRANSINT:[id number] Voice Confirmation ID: [id number] DOCUMENT ID: [id number] GERALD BURRIS MD at 0818 CC: [id number] DICTATION DATE: 10/30/19916 EPIC CUPID ANALYST: 10/30/19 1219 DIS IN 10/30/19 [facility] [address] [place] [address]
== END 2019-10-30 15:09 | disposition home or self-care (01) ==
LOC: D.ER 03:42 → OBSVTIME 04:22 → D.M2 04:22
PROVIDERS: Family Medicine; ADMIT Internal Medicine Interventional Cardiology; ATTEND Internal Medicine Interventional Cardiology
DX: I24.9 Acute ischemic heart disease, unspecified (principal); I10 Essential (primary) hypertension; I25.10 Atherosclerotic heart disease of native coronary artery without angina pectoris; R55 Syncope and collapse; E78.5 Hyperlipidemia, unspecified